=== PATIENT | female | born 1995 | race Two or more races ===

== ENCOUNTER → 2025-03-29 | Outpatient (CLI) | payer BC ==
[2025-03-29 07:48] LABS: Hematocrit 41.2 % (36.0-46.0); Hemoglobin 13.7 g/dL (12.2-16.2); Mean Corpuscular Hemoglobin 30.6 pg (28.0-32.0); Mean Corpuscular Volume 92.1 fL (80.0-100.0); Nucleated Red Blood Cells % 0.1 %
[2025-03-29 08:19] LABS: Urine Protein, UAD Negative (Negative)
[2025-03-29 08:22] LABS: Alanine Aminotransferase 29 U/L (7-40); Alkaline Phosphatase 79 U/L (46-116); Anion Gap 10 (5-15); BUN/Creatinine Ratio 10.4 (10.0-20.0); Calcium 9.3 mg/dL (8.7-10.4); Carbon Dioxide 27 mmol/L (20-31); Chloride 104 mmol/L (98-107); Glucose 103 mg/dL (74-106); Potassium 4.2 mmol/L (3.5-5.1); Sodium 141 mmol/L (136-145); Total Protein 7.7 g/dL (5.7-8.2); Triglycerides 129 mg/dL (< 150)
[2025-03-29 08:23] LABS: Albumin 4.8 g/dL (3.2-4.8); Bilirubin, Total 0.8 mg/dL (0.2-1.0); Blood Urea Nitrogen 7 mg/dL (9-23); Cholesterol 143 mg/dL (< 200); HDL Cholesterol 41 mg/dL (40-59)
[2025-03-29 08:41] LABS: Iron 80.0 ug/dL (50-170)
[2025-03-29 08:44] LABS: Total Iron Binding Capacity 332.0 ug/dL (250-425)
== END | disposition home or self-care (01) ==
LOC: LAB 07:09
PROVIDERS: ATTEND Family Medicine
DX: F41.9 Anxiety disorder, unspecified (principal)
CPT/HCPCS: 36415; 80053; 80061; 80069; 81001; 82306; 82607; 83036; 83540; 83550; 84443; 85025